=== PATIENT | male | born 1975 | race Caucasian/White ===

== ENCOUNTER 2017-09-18 18:41 | Emergency (ER) | payer OTHER | END 2017-09-18 21:42 | disposition home or self-care (01) | LOC: FTE 18:41 | DX: L98.9 Disorder of the skin and subcutaneous tissue, unspecified (principal) | CPT/HCPCS: 99284; Z7502 ==

== ENCOUNTER 2017-11-14 11:45 | Emergency (ER) | payer OTHER | END 2017-11-14 14:36 | disposition home or self-care (01) | LOC: FTE 11:45 | DX: R21 Rash and other nonspecific skin eruption (principal) | CPT/HCPCS: 99283; Z7502 ==